=== PATIENT | female | born 1955 | race Caucasian/White ===

== ENCOUNTER 2017-01-10 19:07 | Emergency (ER) | payer MEDICARE, MEDICAID ==
--- NOTE | 2017-01-10 19:27 | Emergency Department Record ---
History of Present Illness - General Chief complaint: Flu Like Symptoms Stated complaint: SORE THROAT,CHILLS,BODY ACHES,ELEVATED TEMP Time Seen by Provider: 01/10/17 19:22 Source: Patient Mode of Arrival: Ambulatory Limitations: No limitations - History of Present Illness Initial comments: 61 yo female presents to ED with a CC of sore throat and body aches all over. Patient denies fever, cough, abdominal pain, nausea, vomiting, or change in stools. Patient reports that her grand-son was diagnosed with strep throat, and the patient is concerned that she may have the same problems. Patient denies health problems at her baseline other than HTN and hypothyroidism. Onset/Timin -: Days(s) Location: Generalized Severity scale (1-10): 10 Quality: Aching Consistency: Constant Improves with: Rest Worsens with: None Context: Recent illness Associated Symptoms: Headaches - [place] Coma Scale Eye Response: (4) Open spontaneously Motor Response: (6) Obeys commands Verbal Response: (5) Oriented Scott Total: 15 - Related Data Home Medications Medication Instructions Recorded Confirmed Last Taken Aspirin/Dipyridamole [Aggrenox 25 1 each PO BID 09/15/14 01/10/17 01/10/17 mg-200 mg Capsule] Calcium Carbonate/Vitamin D3 1 each PO DAILY 09/15/14 01/10/17 01/10/17 [Calcium 600 + Vit D Tablet] Enalapril Maleate [Vasotec] 2.5 mg PO DAILY 09/15/14 01/10/17 01/10/17 Gabapentin [Neurontin] 600 mg PO TID 09/15/14 01/10/17 01/10/17 Levothyroxine Sodium [Levoxyl] 75 mcg PO DAILY 09/15/14 01/10/17 01/10/17 Loratadine [Claritin] 10 mg PO DAILY 09/15/14 01/10/17 01/10/17 Pioglitazone HCl [Actos] 15 mg PO DAILY 09/15/14 01/10/17 01/10/17 Rosuvastatin Calcium [Crestor] 20 mg PO DAILY 09/15/14 01/10/17 01/10/17 Venlafaxine HCl [Effexor Xr] 150 mg PO DAILY 09/15/14 01/10/17 01/10/17 Travoprost Opth [Travatan Z Opth] 1 drop EACH EYE QHS 09/30/16 01/10/17 01/10/17 Allergies Allergy/AdvReac Type Severity Reaction Status Date / Time lisinopril Allergy Intermediate HEADACHE Verified 01/10/17 19:13 tramadol HCl [From Ultram] Allergy Intermediate ITCHING Verified 01/10/17 19:13 topiramate [From Topamax] Allergy ITCHING Verified 01/10/17 19:13 Travel Screening - Travel/Exposure Within Last 30 Days Have you traveled within the last 30 days?: No - Travel/Exposure Within Last Year Have you traveled outside the [place] in the last year?: No - Additonal Travel Details Have you been exposed to anyone with a communicable illness?: No - Travel Symptoms Symptom Screening: None Review of Systems Constitutional: Reports: Chills. Denies: Fever, Malaise, Night sweats Eyes: Denies: Eye discharge, Eye pain ENT: Reports: Throat pain. Denies: Congestion, Ear pain, Epistaxis Respiratory: Denies: Cough, Dyspnea Cardiovascular: Denies: Chest pain, Dyspnea on exertion Endocrine: Reports: Fatigue. Denies: Heat or cold intolerance Gastrointestinal: Denies: Abdominal pain, Nausea, Vomiting Genitourinary: Denies: Dysuria, Frequency Musculoskeletal: Reports: Myalgia. Denies: Arthralgia, Back pain, Gout, Joint swelling Skin: Denies: Bruising, Change in color Neurological: Denies: Abnormal gait, Confusion, Headache, Seizure Psychiatric: Denies: Anxiety Hematological/Lymphatic: Denies: Anemia, Blood Clots Past Medical History - SOCIAL HISTORY Smoking Status: Former smoker Alcohol Use: None Drug Use: None - RESPIRATORY Hx Respiratory Disorders: Yes Comment:: undiagnosed per pt - CARDIOVASCULAR Hx Cardio Disorders: Yes Hx Hypertension: Yes Comment:: hyper cholesterol - NEURO Hx Neuro Disorders: Yes Hx CVA: Yes (x 6) - GI Hx GI Disorders: No - Hx Genitourinary Disorders: No - ENDOCRINE Hx Endocrine Disorders: Yes Hx Diabetes: Yes Hx Thyroid Disease: Yes - MUSCULOSKELETAL Hx Musculoskeletal Disorders: Yes Hx Arthritis: Yes - PSYCH Hx Psych Problems: Yes Hx Anxiety: Yes Hx Depression: Yes - HEMATOLOGY/ONCOLOGY Hx Hematology/Oncology Disorders: No Family Medical History Any Significant Family History?: No Hx Cancer: Father Hx Diabetes: Father, Mother, Brother/Sister Hx Heart Disease: Brother/Sister Hx HTN: Father, Mother, Brother/Sister Hx Stroke: Grandparents Physical Exam - General General Appearance: Alert, Oriented x3, Cooperative, No acute distress Limitations: No limitations - Head Head exam: Atraumatic, Normocephalic, Normal inspection Head exam detail: negative: Abrasion, Contusion, Gallardo's sign, General tenderness, Hematoma, Laceration - Eye Eye exam: Normal appearance. negative: Conjunctival injection, Periorbital swelling, Periorbital tenderness, Scleral icterus - ENT Ear exam: negative: Auricular hematoma, Auricular trauma Nasal Exam: negative: Active bleeding, Discharge, Dried blood, Foreign body Mouth exam: negative: Drooling, Laceration, Muffled voice, Tongue elevation - Neck Neck exam: Normal inspection. negative: Meningismus, Tenderness - Respiratory Respiratory exam: Normal lung sounds bilaterally. negative: Rales, Respiratory distress, Rhonchi - Cardiovascular Cardiovascular Exam: Regular rate, Normal rhythm, Normal heart sounds - GI/Abdominal GI/Abdominal exam: Soft. negative: Rebound, Rigid, Tenderness - Rectal Rectal exam: Deferred - exam: Deferred - Extremities Extremities exam: Normal inspection. negative: Pedal edema, Tenderness - Back Back exam: Denies: CVA tenderness (R), CVA tenderness (L) - Neurological Neurological exam: Alert, Normal gait, Oriented X3 - Psychiatric Psychiatric exam: Normal affect, Normal mood - Skin Skin exam: Normal color. negative: Abrasion Type of lesion: negative: abrasion Course Vital Signs 01/10/17 19:12 Temperature 97.9 F Pulse Rate 84 Respiratory 22 Rate Blood Pressure 125/94 Pulse Ox 98 - Reevaluation(s) Reevaluation #1: 01/10/17 19:51 Influenza and rapid strep are both negative for infection. Patient denies significant cough symptoms, and symptoms are less likely to be related to pneumonia then URI of viral origin. Patient appears stable for discharge at this time with instructions for symptomatic care. Disposition Disposition: Discharge Clinical Impression: Upper respiratory tract infection Qualifiers: URI type: unspecified URI Qualified Code(s): J06.9 - Acute upper respiratory infection, unspecified Disposition: Home, Self-Care Condition: (2) Stable Instructions: Upper Respiratory Infection (ED) Additional Instructions: Return to ED if your symptoms worsen or if you have any concerns. Follow-up with your family doctor in 3-5 days as directed. Forms: Patient Portal Access Time of Disposition: 19:53
[2017-01-10 19:40] LABS: STREP A SCREEN NEGATIVE (NEGATIVE)
[2017-01-10 19:47] LABS: INFLUENZA A NEGATIVE (NEGATIVE); INFLUENZA B NEGATIVE (NEGATIVE)
== END 2017-01-10 20:06 | disposition home or self-care (01) ==
LOC: ER 19:07
DX: J06.9 Acute upper respiratory infection, unspecified (principal); R05 Cough; R51 Headache; I10 Essential (primary) hypertension; E03.9 Hypothyroidism, unspecified
CPT/HCPCS: 87400; 87880; 99282